=== PATIENT | male | born 1970 | race Caucasian/White ===

== ENCOUNTER → 2018-05-27 | Outpatient (CLI) | payer BC, OTHER ==
--- NOTE | 2018-05-27 16:41 | PCVCIMAG ---
APPROVED REPORT Study performed: 05/27/2018 15:03:36 EXAM: Comprehensive 2D, Doppler, and color-flow Echocardiogram Patient Location: Echo lab Status: routine BSA: 1.85 HR: 100 bpmBP: 140/80 mmHg Rhythm: NSR Other Information Study Quality: Good Risk Factors: Cardiac Risk Factors: Hyperlipidemia, HTN 2D Dimensions IVSd: 13.22 (7-11mm)LVOT Diam: 18.79 (18-24mm) LVDd: 37.51 mm PWd: 10.49 (7-11mm)Ascending Ao: 25.58 (22-36mm) LVDs: 25.78 (25-40mm) Left Atrium: 37.36 (27-40mm) Aortic Root: 28.47 mm LV Single Plane 4CH: 62.87 % LV Single Plane 2CH: 69.75 % Biplane EF: 66.0 % Volumes Left Atrial Volume (Systole) Single Plane 4CH: 21.82 mLSingle Plane 2CH: 31.73 mL LA ESV Index: 15.00 mL/m2 Aortic Valve AoV Peak Jey.: 1.60 m/s AO Peak Gr.: 10.28 mmHgLVOT Max P.70 mmHg LVOT Max V: 1.29 m/s GEORGE Vmax: 2.24 cm2 Mitral Valve E/A Ratio: 1.0 MV Decel. Time: 176.15 ms MV E Max Jey.: 0.89 m/s MV A Jey.: 0.90 m/s TDI E/Lateral E': 8.09E/Medial E': 4.68 Medial E' Jey.: 0.19 m/s Lateral E' Jey.: 0.11 m/s Pulmonary Valve PV Peak Gr.: 5.82 mmHg Pulmonary Vein P Vein S: 0.67 m/sP Vein A: 0.33 m/s P Vein D: 0.44 m/sP Vein A Dur.: 90.0 msec P Vein S/D Ratio: 1.52 Left Ventricle The left ventricle is normal size. There is normal LV segmental wall motion. There is normal left ventricular wall thickness. Left ventricular systolic function is normal. The left ventricular ejection fraction is within the normal range. LVEF is 65%. The left ventricular diastolic function is normal. Right Ventricle The right ventricle is normal size. The right ventricular systolic function is normal. Atria The left atrium size is normal. The right atrium size is normal. Aortic Valve The aortic valve is normal in structure. No aortic regurgitation is present. There is no aortic valvular stenosis. Mitral Valve The mitral valve is normal in structure. There is no mitral valve regurgitation noted. No evidence of mitral valve stenosis. Tricuspid Valve The tricuspid valve is normal in structure. There is no tricuspid valve regurgitation noted. Pulmonic Valve The pulmonary valve is normal in structure. There is no pulmonic valvular regurgitation. Great Vessels The aortic root is normal in size. IVC is normal in size and collapses >50% with inspiration. Pericardium There is no pericardial effusion. <Conclusion> Left ventricular systolic function is normal. There is normal LV segmental wall motion. LVEF is 65%. Normal diastolic function The aortic valve is normal in structure. No aortic regurgitation or stenosis The mitral valve is normal in structure. No mitral valve regurgitation Pulmonary artery pressure could not be reliably ascertained There is no pericardial effusion.
--- NOTE | 2018-05-27 16:44 | PCVCIMAG ---
APPROVED REPORT Patient Location: Echo lab Room #: Stress Nurse: Nava Anne RN Treadmill stest test: The patient exercised according to the Esteban for 12:00mins, achieving a work level of Max METS: 13.40. The resting heart rate of 92 bpm akhil to a maximal heart rate of 184 bpm. This value represents 105% of the maximal, age predicted heart rate. The resting blood pressure of 140/80 mmHg, akhil to a maximum blood pressure of 170/80 mmHg. The exercise test was stopped due to fatigue, leg discomfort. Resting EKG: Sinus rhythm normal tracing Stress EKG: No significant dysrhythmias. Single, isolated PVC in the recovery phase. No ST segment shifts diagnostic of myocardial ischemia. Conclusion 1. Maximal treadmill exercise study negative for exercise-induced myocardial ischemia. Low Fletcher treadmill score 2. No dysrhythmias. No diagnostic ischemic or echocardiographic changes. 3. The study was associated with excellent exercise capacity (13.4 METS)
== END | disposition home or self-care (01) ==
LOC: PCVCIMAG 13:00
PROVIDERS: ATTEND Internal Medicine
DX: I10 Essential (primary) hypertension (principal); R00.2 Palpitations
CPT/HCPCS: 93017; 93306